=== PATIENT | female | born 1990 | race Hispanic/Latino ===

== ENCOUNTER 2019-05-02 00:08 | Emergency (ER) | payer OTHER ==
[2019-05-02 02:04] LABS: Bacteria/HPF 1+ HPF (None Seen); Bilirubin Negative (Negative); Blood, Urine Negative (Negative); Clarity Turbid (Clear); Glucose, Urine (Dipstick) Normal (Negative); Leukocyte 500 Leu/uL (Negative); Nitrite Negative (Negative); Protein, Urine (Dipstick) Negative (Neg-Trace); RBC/HPF 0-3 HPF (0-3); Urobilinogen Normal mg/dL (Less than 2); WBC/HPF 21-50 HPF (0-3)
[2019-05-02 20:08] LABS: Chlam.trachomatis by PCR,Urine Not Detected (NotDetected)
== END 2019-05-02 02:55 | disposition home or self-care (01) ==
LOC: ERS 00:08
DX: N39.0 Urinary tract infection, site not specified (principal); F41.9 Anxiety disorder, unspecified; F32.9 Major depressive disorder, single episode, unspecified; Z79.899 Other long term (current) drug therapy
CPT/HCPCS: 81003; 81015; 87086; 87480; 87491; 87510; 87591; 87660

== ENCOUNTER 2019-05-23 09:58 | Inpatient (IN) | payer OTHER ==
[2019-05-23 10:25] VITALS: BMI 26.7
[2019-05-23] MEDS ORDERED: hydrALAZINE 20 MG/ML VIAL SLOW IVP PRN (10:49)
--- NOTE | 2019-05-23 11:15 | PDOC.FPROB ---
FMR OB H&P: HPI - History of Present Illness Chief Complaint: leakage of fluid History of Present Illness: 28yo @ 19.5wk by LMP c/w 14.5wk shadia presents for leakage of fluid and oligo on US at clinic. Per pt, she first starting having vaginal discharge 2 weeks ago on 05/02/19. Was seen in ED, diagnosed with BV and given abx which she finished. Discharge at that time was thick, yellow. Since then, discharge has continued but has been clear, no large gushes of fluid. Over past 5 days has had scant vaginal bleeding but increased in amount, occasional cramping. Chills. No fever. No CP, SOB, vision changes, LE edema, recent travel or known sick contacts. No vaginal burning, itching, dysuria, or frequency. No constipation or diarrhea. Other deliveries were at 40wk x4 and most recent at 38wks. Last had placenta previa early in that resolved. No NICU stay. History of Chlamydia during 3rd but negative since. No new partners, no recent intercourse. Primary Care Physician: PNC FMR OB H&P: Current - Care : 7 Para: [id number] Gestational age: 19.5 Due date: 10/12/19 Dating Criteria: LMP c/w 14.5wk sono - OB Labs Blood type: O RH: positive Antibody Screen: negative HIV: negative RPR: negative HepBsAg: negative Rubella: immune Gonorrhea: negative Chlamydia: negative Pap Smear: NILM H&H: 13.1/38.8 Additional labs: 05/01/19 BV GBS negative last - First Trimester Ultrasound First trimester: Fundal placenta FMR OB H&P: History - Past Medical History PMH: denies. Per records, h/o intention overdose of SSRI in 2014 during . - OB History OB History: . Other deliveries were at 40wk x4 and most recent at 38wks. Last had placenta previa early in that resolved. No NICU stay. 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 No new partners, no recent intercourse. H/o BV 2 weeks ago, treated. - Surgical History Sx History: none - Social History Social History: No tob, illicits, etoh. - Family History Family History: GM with breast cancer and DMII FMR OB H&P: Medications - Current Home Medications: Medication Instructions Recorded Confirmed Type No122/Iron/Folic Acid 1 each PO DAILY #0 tablet 08/31/14 05/23/19 Rx [ Multi Tablet] Allergies/Adverse Reactions: Allergies Allergy/AdvReac Type Severity Reaction Status Date / Time Penicillins Allergy Short of Verified 05/23/19 10:19 Breath FMR OB H&P: ROS - Review of Systems General: denies: fever/chills, weight/appetite/sleep changes Eyes: denies: vision changes ENT: denies: nasal congestion, rhinorrhea Cardiovascular: denies: chest pain Respiratory: denies: cough, congestion, shortness of breath Gastrointestinal: reports: cramping. denies: abdominal pain, nausea, vomiting, diarrhea, constipation Genitourinary (Female): reports: vaginal discharge, vaginal bleeding. denies: dysuria, hematuria, contractions Musculoskeletal: denies: pain FMR OB H&P: Vital Signs - Maternal Vital signs: Vital Signs - First Documented Temp Pulse Resp BP 98.9 F 73 18 106/64 05/23/19 10:18 05/23/19 10:18 05/23/19 10:18 05/23/19 10:18 - Heart Tones Baseline: 135 (FHT) FMR OB H&P: Physical Exam - Physical Exam General: NAD, awake, alert and oriented HEENT: MMM Neck: supple Heart: RRR, normal S1/S2, no murmurs/rubs/gallops, no edema General: CTAB, no respiratory distress, good air movement, no wheezing Abdomen: soft, gravid, non-tender, bowel sound present Neurological: no focal deficit Psychiatric: intact recent and remote memory, good judgement and insight, normal mood and affect - Pelvic Exam Vulva: normal hair distribution, no masses, no lesions Deviation from normal: thick, yellow discharge Deviation from normal: 1cm cluster of red, nontender, blisters on anterior cervical lip, no poolin FMR OB H&P: A/P - Problem List (1) Second trimester Current Visit: Yes Status: Acute Code(s): Z34.92 - ENCNTR FOR SUPRVSN OF NORMAL PREG, UNSP, SECOND TRIMESTER Disposition: 28yo @ 19.5wk by LMP c/w 14.5wk sono presents for leakage of fluid and oligo on US at clinic. #Concern for PPROM - @ 19.5wk - leakage of fluid x2 weeks - scant vaginal bleeding, cramping, increased over past 5d - Speculum exam with thick yellow discharge, no pooling. Anterior cervical lesions, red, nontender, blister, approx 1cm cluster - VP3, GC/C, and Amnisure obtained - US in clinic with oligo, unable to apprec any fluid - Ordered 2nd trimester US with cervical length and SHARAD - FHT 135 - Concern for PPROM, if confirmed will admit to L&D for expectant management as fetus is below viable gestational age Dispo: Pending VP3, GC/C, Amnisure and US. Discussion: Date/Time: 05/23/19 1111 This H&P was discussed with Dr. Galdamez and Dr. Patterson who agree with the above documentation and plan.
[2019-05-23 11:41] LABS: Amnisure Internal Control QC ACCEPTABLE (ACCEPTABLE)
[2019-05-23 11:42] LABS: Amnisure Test No Membranes Rupture (No Rupture)
--- NOTE | 2019-05-23 13:12 | PDOC.BPN ---
- Brief Progress Note S: Pt doing well, no concerns or complaints. No pain, CP, SOB, n/v. O: Selected Entries 05/23/19 10:18 Temperature 98.9 F Pulse Rate 73 Blood Pressure 106/64 [Semi-Fowlers] Respiratory 18 Rate Resting comfortably. NAD. No further vaginal bleeding or LOF at this time. A/P: 28yo @ 19.5wk by LMP c/w 14.5wk sono presented for leakage of fluid and oligo on US at clinic. #Suspected PPROM - @ 19.5wk - leakage of fluid x2 weeks. Scant vaginal bleeding and cramping, increased over past 5d - Speculum exam with thick yellow discharge, no pooling. Anterior cervical lesions, red, nontender, blister, approx 1cm cluster. Closed cervix. - VP3 negative - Amnisure negative - GC/C pending - US in clinic on 05/22 with oligo, unable to apprec any fluid, sent to L&D for triage - OB US 05/22 - cervical length 3.9cm. SHARAD 1.6cm. Measuring 18.6wks, Transverse lie, anterior placenta. Official read pending for anatomy. - FHT 135 at admission - Suspected PPROM. Admit to antepartum. Daily CBC, q4h Vitals with temp, daily FHT. Monitor for onset of labor or s/s of infx. - Repeat US in 2days for further management - cont to monitor clinical status. Dispo: Admit to antepartum. Monitor for s/s of infection or onset of labor. Daily FHT and CBC. q4h vitals. Repeat US in 2 days (05/24)
--- NOTE | 2019-05-23 13:46 | ULT ---
OB ULTRASOUND: 05/23/19 COMPARISON: None. HISTORY: Concern for premature rupture of the membranes in a second trimester female. COMPARISON: None. TECHNIQUE: Multiplanar clarke scale and color Doppler images were obtained in a transabdominal ultrasound. FINDINGS: There is a single live intrauterine with heart rate of 163 beats per minute. A limited feta l survey was performed which is unremarkable. The face, extremities, and heart were not well visualiz ed. The other structures were unremarkable. Estimated weight is 274 grams. Average age of the fetus based off today's examination is 18 wee ks, 6 days. The following measurements were taken and dates based off these measurements are as follo ws: BPD 4.05 cm 18 weeks, 0 days HC 15.85 cm 18 weeks, 5 days AC 13.35 cm 18 weeks, 6 days FL 3.08 cm 19 weeks, 4 days The placenta is anterior/fundal in location without evidence of placenta previa. SHARAD is 1.6 cm, which is low. The cervix is normal in length. IMPRESSION: Oligohydramnios. POS: [facility]
[2019-05-23 17:25] LABS: #Eosinphils 0.2 thou/uL (0.0-0.7); #Lymphocytes 2.3 thou/uL (1.20-3.40); #Monocytes 1.3 thou/uL (0.11-0.59); #Neutrophils 11.3 thou/uL (1.40-6.50); %Basophils 0.2 % (0.0-1.0); %Lymphocytes 15.5 % (21.0-51.0); %Monocytes 8.4 % (0.0-10.0); %Neutrophils 74.9 % (42.0-75.0); Hemoglobin 12.1 g/dL (12.0-16.0); Mean Corpuscular Hemoglobin 29.8 pg (27.0-31.0); Mean Corpuscular Volume 87.7 fL (78.0-98.0); Mean Platelet Volume 8.2 fL (7.4-10.4); Platelet Count 259 thou/uL (130-400); RBC Distribution Width 12.1 % (11.5-14.5); Red Blood Cell (RBC) Count 4.06 mill/uL (4.20-5.40)
[2019-05-23 18:08] LABS: Syphilis Antibody Nonreactive (Nonreactive); Syphilis Antibody Index 0.02 S/CO (<1.00 Non-Reactive)
[2019-05-23 18:09] LABS: HBSAg Index 0.24 S/CO (0-0.99); Hep B Surf Ag Non-Reactive S/CO (NonReactive)
[2019-05-24 05:50] LABS: #Eosinphils 0.5 thou/uL (0.0-0.7); #Lymphocytes 2.6 thou/uL (1.20-3.40); #Monocytes 1.1 thou/uL (0.11-0.59); #Neutrophils 12.4 thou/uL (1.40-6.50); %Basophils 0.3 % (0.0-1.0); %Eosinophils 2.9 % (0.0-10.0); %Lymphocytes 15.8 % (21.0-51.0); %Monocytes 6.6 % (0.0-10.0); %Neutrophils 74.4 % (42.0-75.0); Hemoglobin 12.2 g/dL (12.0-16.0); Mean Corpuscular HGB CONC 34.1 g/dL (32.0-36.0); Mean Corpuscular Hemoglobin 30.3 pg (27.0-31.0); Mean Corpuscular Volume 88.8 fL (78.0-98.0); Mean Platelet Volume 8.7 fL (7.4-10.4); Platelet Count 243 thou/uL (130-400); RBC Distribution Width 12.2 % (11.5-14.5); Red Blood Cell (RBC) Count 4.05 mill/uL (4.20-5.40); White Blood Cell (WBC) Count 16.7 thou/uL (4.8-10.8)
--- NOTE | 2019-05-24 06:14 | HP ---
ADDENDUM: TIME OF SERVICE: Approximately 1300 hours. Please see resident H and P. Ms. Rodríguez was admitted with suspected previable rupture of membranes at 19 weeks and 5 days. AmniSure and speculum exam were equivocal; however, the patient's history and low SHARAD are very suggestive of rupture of membranes. The patient's white count is within normal limits, and she remains afebrile. The fetus is noted to be transverse with good FHTs. I discussed with the patient our options. As there was no evidence of septic AB, termination of the is not an option at this time secondary to [employer] ethical and lutheran directives. I do not think at 19 weeks that antibiotics are indicated on a prophylactic basis as they may conceal the development of septic AB. Plan would be to admit the patient to the hospital bed rest with modified activity, regular diet, serial temperatures, serial CBCs, and repeat ultrasound in 2 days. Reassess fluid level at that point in time. If the patient makes it to 21 to 22 weeks' gestation, consider antibiotic prophylaxis for prolonged rupture of membranes, and would consider corticosteroids and transfer to a tertiary care center for higher level care at 23 weeks' gestation. The patient understands risks and benefits of the procedure, risk and benefits of continuing the , and the risk of delayed diagnosis of sepsis with home discharge at this time. She consents to hospitalization. Job ID: [id number]
--- NOTE | 2019-05-24 06:46 | PDOC.OBAPN ---
FMR OB AP PN: Sub - Interval History Hospital Day: 1 Chief Complaint: Leakage of fluid Interval History: Occasional cramping, small vaginal bleeding, no vaginal discharge R OB AP PN: Obj - Maternal Vital signs: Selected Entries 05/23/19 05/23/19 16:25 16:55 Temperature 99.2 F Pulse Rate 85 Blood Pressure 119/57 L [Semi-Fowlers] Respiratory 18 Rate Oxygen Delivery Room Air Method [facility] OB AP PN: Exam - Physical Exam General: NAD, awake, alert and oriented HEENT: MMM Neck: supple Heart: RRR, normal S1/S2, no murmurs/rubs/gallops, no edema General: CTAB, no respiratory distress, good air movement, no wheezing Abdomen: soft, gravid, bowel sound present, other (mildly TTP over fundus of uterus) Deviation from normal: no rebound or guarding Neurological: no focal deficit Skin: no rash Psychiatric: normal mood and affect [facility] OB AP PN: Data - Labs Lab results: Laboratory Results - last 24 hr 05/23/19 05/23/19 05/23/19 11:00 17:16 17:16 WBC RBC Hgb Hct MCV MCH MCHC RDW Plt Count MPV Neutrophils % Lymphocytes % Monocytes % Eosinophils % Basophils % Neutrophils # Lymphocytes # Monocytes # Eosinophils # Basophils # Amnio Swab Test No Membranes Rupture Syphilis IgG/IgM Ab Nonreactive Hep Bs Antigen Non-Reactive Blood Type Antibody Screen 05/23/19 05/23/19 05/24/19 17:16 17:16 05:32 WBC 15.0 H 16.7 H RBC 4.06 L 4.05 L Hgb 12.1 12.2 Hct 35.7 L 35.9 L MCV 87.7 88.8 MCH 29.8 30.3 MCHC 34.0 34.1 RDW 12.1 12.2 Plt Count 259 243 MPV 8.2 8.7 Neutrophils % 74.9 74.4 Lymphocytes % 15.5 L 15.8 L Monocytes % 8.4 6.6 Eosinophils % 1.0 2.9 Basophils % 0.2 0.3 Neutrophils # 11.3 H 12.4 H Lymphocytes # 2.3 2.6 Monocytes # 1.3 H 1.1 H Eosinophils # 0.2 0.5 Basophils # 0.0 0.0 Amnio Swab Test Syphilis IgG/IgM Ab Hep Bs Antigen Blood Type O POSITIVE Antibody Screen NEGATIVE FMR OB AP PN: A/P - Problem List (1) Second trimester Current Visit: Yes Status: Acute Code(s): Z34.92 - ENCNTR FOR SUPRVSN OF NORMAL PREG, UNSP, SECOND TRIMESTER Disposition: 28yo @ 19.6wk by LMP c/w 14.5wk sono presented for leakage of fluid and oligo on US at clinic admitted for suspected PPROM #Suspected PPROM - @ 19.6wk - leakage of fluid x2 weeks. Scant vaginal bleeding and cramping, increased over past 5d prior to admission - Speculum exam at admission with thick yellow discharge, no pooling. Anterior cervical lesions, red, nontender, blister, approx 1cm cluster. Closed cervix. - VP3 negative - Amnisure negative - GC/C pending - US in clinic on 05/22 with oligo, unable to apprec any fluid, sent to L&D for triage - OB US 05/22 - cervical length 3.9cm. SHARAD 1.6cm. Measuring 18.6wks, Transverse lie, anterior placenta. Grossly normal anatomy - FHT 135 at admission - Suspected PPROM. Admitted to antepartum. Daily CBC, q4h Vitals with temp, daily FHT. Monitor for onset of labor or s/s of infx. - Repeat US on 05/24 for further management - VSS, afebrile. WBC 15 -> 16.7 - mildly tender uterus on exam, will monitoring closely for s/s of infection or onset of spontaneous - plan discussed with patient at beside who voiced understanding and agreement Dispo: Admitted to antepartum. Monitor for s/s of infection or onset of labor. Daily FHT and CBC. q4h vitals with temp. Repeat TVUS on 05/24. Discussion: Date/Time: 05/24/19 0646 This H&P was discussed with Dr. Patterson who agrees with the above documentation and plan.
[2019-05-24] MEDS: Prenatal Vitamin 1 TAB PO SCH (10:55)
[2019-05-24 12:19] LABS: Chlamydia by PCR Not Detected (NotDetected); GC by PCR Not Detected (NotDetected)
--- NOTE | 2019-05-25 07:14 | PDOC.OBAPN ---
FMR OB AP PN: Sub - Interval History Hospital Day: 2 Chief Complaint: PPROM Interval History: Doing well. Increased bleeding and cramping. No fever/chills, n/v. FMR OB AP PN: Obj - Maternal Vital signs: BP 108/57 -> 133/76 Selected Entries 05/24/19 05/24/19 08:01 12:50 Temperature 98.6 F 98.7 F Pulse Rate 81 Blood Pressure 107/61 [Semi-Fowlers] Respiratory 18 Rate Oxygen Delivery Room Air Method - Heart Tones Baseline: 160 (FHT) FMR OB AP PN: Exam - Physical Exam General: NAD, awake, alert and oriented HEENT: MMM Neck: supple Heart: RRR, normal S1/S2, no murmurs/rubs/gallops, no edema General: CTAB, no respiratory distress, good air movement, no rales/rhonchi, no wheezing Abdomen: soft, gravid, bowel sound present, other Deviation from normal: Mildly TTP over LLQ and midline, no rebound or guarding Neurological: no focal deficit Psychiatric: good judgement and insight, normal mood and affect FMR OB AP PN: Data - Labs Lab results: Laboratory Results - last 24 hr 05/23/19 11:00 Chlamydia DNA (PCR) Not Detected Chlamydia/GC Spec Info N gonorrhoeae DNA (PCR) Not Detected FMR OB AP PN: A/P - Problem List (1) Second trimester Current Visit: Yes Status: Acute Code(s): Z34.92 - ENCNTR FOR SUPRVSN OF NORMAL PREG, UNSP, SECOND TRIMESTER Disposition: 28yo @ 20.0wk by LMP c/w 14.5wk sono presented for leakage of fluid and oligo on US at clinic admitted for suspected PPROM #Suspected PPROM - @ 20.0wk - leakage of fluid x2 weeks. Scant vaginal bleeding and cramping, increased over past 5d prior to admission - Speculum exam at admission with thick yellow discharge, no pooling. Anterior cervical lesions, red, nontender, blister, approx 1cm cluster. Closed cervix. - VP3 and GC/C negative - Amnisure negative - US in clinic on 05/22 with oligo, unable to apprec any fluid, sent to L&D for triage - OB US 05/22 - cervical length 3.9cm. SHARAD 1.6cm. Measuring 18.6wks, Transverse lie, anterior placenta. Grossly normal anatomy - FHT 135 at admission, 160 this AM - Suspected PPROM. Admitted to antepartum. Daily CBC, q4h Vitals with temp, daily FHT. Monitor for onset of labor or s/s of infx. - Repeat US today to assess SHARAD - VSS, afebrile. WBC 15 -> 16.7, AM labs pending - mildly tender uterus on exam, stable from previous exam - Slight increase in cramping and bleeding per pt, will monitoring closely for s /s of infection or onset of spontaneous - plan discussed with patient at beside who voiced understanding and agreement. Pending labwork and US, discharge with return precautions vs continued inpt observation Dispo: Admitted to antepartum. Monitor for s/s of infection or onset of labor. Daily FHT and CBC. q4h vitals with temp. Repeat TVUS today. Discussion: Date/Time: 05/25/19711 This H&P was discussed with Dr. Hart agrees with the above documentation and plan.
[2019-05-25 07:26] LABS: #Eosinphils 0.4 thou/uL (0.0-0.7); #Lymphocytes 2.8 thou/uL (1.20-3.40); #Monocytes 1.1 thou/uL (0.11-0.59); #Neutrophils 12.7 thou/uL (1.40-6.50); %Basophils 0.2 % (0.0-1.0); %Eosinophils 2.4 % (0.0-10.0); %Lymphocytes 16.1 % (21.0-51.0); %Monocytes 6.6 % (0.0-10.0); %Neutrophils 74.7 % (42.0-75.0); Hemoglobin 12.3 g/dL (12.0-16.0); Mean Corpuscular HGB CONC 33.6 g/dL (32.0-36.0); Mean Corpuscular Volume 89.2 fL (78.0-98.0); Mean Platelet Volume 8.3 fL (7.4-10.4); Platelet Count 260 thou/uL (130-400); RBC Distribution Width 12.2 % (11.5-14.5)
--- NOTE | 2019-05-25 11:49 | ULT ---
OB ULTRASOUND: INDICATIONS: Oligohydramnios. FINDINGS: There is a viable intrauterine single gestation. This is a limited exam and measurements were n ot obtained. There is severe oligohydramnios. The SHARAD is recorded at 1.8 cm. heart rate is 158 beats per minute. Baseline position: Breech. Placenta: Anterior. IMPRESSION: Severe oligohydramnios. POS: [facility]
[2019-05-25] MEDS: Acetaminophen 500 MG TAB PO PRN (20:40)
[2019-05-25] MEDS: Prenatal Vitamin 1 TAB PO SCH (22:53)
[2019-05-26 05:47] LABS: #Eosinphils 0.2 thou/uL (0.0-0.7); #Lymphocytes 2.7 thou/uL (1.20-3.40); #Neutrophils 11.3 thou/uL (1.40-6.50); %Basophils 0.3 % (0.0-1.0); %Eosinophils 1.6 % (0.0-10.0); %Lymphocytes 17.7 % (21.0-51.0); %Monocytes 6.4 % (0.0-10.0); %Neutrophils 73.9 % (42.0-75.0); Hemoglobin 11.5 g/dL (12.0-16.0); Mean Corpuscular HGB CONC 34.1 g/dL (32.0-36.0); Mean Corpuscular Hemoglobin 30.2 pg (27.0-31.0); Mean Corpuscular Volume 88.5 fL (78.0-98.0); Mean Platelet Volume 8.5 fL (7.4-10.4); Platelet Count 244 thou/uL (130-400); RBC Distribution Width 12.3 % (11.5-14.5); Red Blood Cell (RBC) Count 3.83 mill/uL (4.20-5.40); White Blood Cell (WBC) Count 15.3 thou/uL (4.8-10.8)
[2019-05-26] MEDS ORDERED: Simethicone Chewable 80 MG TAB PO PRN (05:49)
[2019-05-26] MEDS ORDERED: Docusate 100 MG CAP PO PRN (05:51)
[2019-05-26] MEDS: Acetaminophen 500 MG TAB PO PRN (06:01)
[2019-05-26 06:11] VITALS: TEMP 98.4
--- NOTE | 2019-05-26 07:06 | PDOC.OBAPN ---
FMR OB AP PN: Sub - Interval History Chief Complaint: PPROM Interval History: Doing well, mild nausea, no vomit. Cramping less. Bleeding less FMR OB AP PN: Obj - Maternal Vital signs: Selected Entries 05/25/19 05/26/19 05/26/19 20:00 00:10 05:30 Temperature 99.1 F 98.5 F 98.4 F Pulse Rate 80 Blood Pressure 108/61 [Semi-Fowlers] Respiratory 17 Rate - Heart Tones Baseline: 150 (FHT) R OB AP PN: Exam - Physical Exam General: NAD, awake, alert and oriented HEENT: MMM Neck: supple Heart: RRR, normal S1/S2, no murmurs/rubs/gallops, pulses present, no edema General: CTAB, no respiratory distress, good air movement, no rales/rhonchi, no wheezing Abdomen: soft, gravid, bowel sound present Deviation from normal: Mildly TTP, decreased from previous exams Neurological: no focal deficit R OB AP PN: Data - Labs Lab results: Laboratory Results - last 24 hr 05/25/19 05/26/19 07:20 05:37 WBC 17.0 H 15.3 H RBC 4.10 L 3.83 L Hgb 12.3 11.5 L Hct 36.5 33.9 L MCV 89.2 88.5 MCH 30.0 30.2 MCHC 33.6 34.1 RDW 12.2 12.3 Plt Count 260 244 MPV 8.3 8.5 Neutrophils % 74.7 73.9 Lymphocytes % 16.1 L 17.7 L Monocytes % 6.6 6.4 Eosinophils % 2.4 1.6 Basophils % 0.2 0.3 Neutrophils # 12.7 H 11.3 H Lymphocytes # 2.8 2.7 Monocytes # 1.1 H 1.0 H Eosinophils # 0.4 0.2 Basophils # 0.0 0.0 FMR OB AP PN: A/P - Problem List (1) Second trimester Current Visit: Yes Status: Acute Code(s): Z34.92 - ENCNTR FOR SUPRVSN OF NORMAL PREG, UNSP, SECOND TRIMESTER Disposition: 28yo @ 20.1wk by LMP c/w 14.5wk sono presented for leakage of fluid and oligo on US at clinic admitted for suspected PPROM #Suspected PPROM - @ 20.1wk - leakage of fluid x2 weeks. Scant vaginal bleeding and cramping, increased over past 5d prior to admission - Speculum exam at admission with thick yellow discharge, no pooling. Anterior cervical lesions, red, nontender, blister, approx 1cm cluster. Closed cervix. - VP3 and GC/C negative - Amnisure negative - US in clinic on 05/22 with oligo, unable to apprec any fluid, sent to L&D for triage - OB US 05/22 - cervical length 3.9cm. SHARAD 1.6cm. Measuring 18.6wks, Transverse lie, anterior placenta. Grossly normal anatomy - Repeat OB US 05/24 with SHARAD 1.8cm, Breech presentation, anterior placenta - FHT 150 this AM - Suspected PPROM. Admitted to antepartum. Daily CBC, q4h Vitals with temp, daily FHT. Monitor for onset of labor or s/s of infx. - VSS, afebrile. WBC 15 -> 16.7 -> 17.0 -> 15.3 - mildly tender uterus on exam, improved from previous exam. Cramping decreased per pt. Vaginal bleeding mild and decreased per pt. - plan discussed with patient at beside who voiced understanding and agreement. Spoke at length on return precautions including but not limited to fever, increased vaginal bleeding, cramping, body aches that would warrant return to L& D. If pt should also progress to 23wks will need to present for admission at that time. Pt also needs close f/u in clinic this week. Dispo: Admitted to antepartum. Monitored for s/s of infection or onset of labor. Daily FHT and CBC. q4h vitals with temp. Repeat TVUS stable. Stable for discharge today. Discussion: Date/Time: 05/26/19 0633 This H&P was discussed with Dr. Rios who agrees with the above documentation and plan.
[2019-05-26 09:29] VITALS: BP 106/59
[2019-05-26] MEDS: Prenatal Vitamin 1 TAB PO SCH (10:19)
--- NOTE | 2019-05-27 11:35 | DIS ---
DATE OF ADMISSION: 05/23/2019 DATE OF DISCHARGE: 05/26/2019 RESIDENT: Law Avila MD. ADMITTING ATTENDING: Dr. Patterson. DISCHARGE ATTENDING: Dr. Rios. CONSULTS: None. PROCEDURES: 1. OB ultrasound on 05/23/2019, demonstrating SHARAD 1.6, normal cervical length, anterior placenta. 2. OB ultrasound on 05/25/2019, demonstrating SHARAD 1.8 cm. heart rate 158 beats per minute. Breech presentation. Anterior placenta. PRIMARY DIAGNOSIS: Suspected PPROM. SECONDARY DIAGNOSES: Single intrauterine . DISCHARGE MEDICATIONS: vitamin 1 tablet p.o. daily. HOSPITAL COURSE: At the time of discharge, the patient was a G7, P5-0-1-5 at 20.1 weeks by LMP consistent with a 14.5-week sono, who initially presented for leakage of fluid and oligo on ultrasound at clinic. The patient stated that she had had leakage of fluid for approximately 2 weeks. Scant vaginal bleeding and cramping, but these increased over the past 5 days. Speculum exam at admission demonstrated thick yellow discharge. No pooling of fluid. An anterior cervical lesion was red, nontender, blister-like approximately 1 cm cluster, closed cervix. The VP3 and gonorrhea, chlamydia were both obtained and negative. AmniSure was obtained and negative. heart tones were normal. An ultrasound at clinic on 05/23/2019, demonstrated oligohydramnios, unable to appreciate any fluid, and thus she was sent to L and D for triage. Repeat ultrasound at triage demonstrated a cervical length of 3.9 cm and SHARAD of 1.67 cm, measuring 18.6 weeks with transverse lie anterior placenta. Based on the history obtained and data, it appeared to be the patient was PPROM, and was admitted for observation. We decided the patient would have daily CBCs, monitoring of vitals q.4 hours with temperature and monitor for any signs of increased cramping or vaginal bleeding or any other signs of infection. This plan was discussed with the patient, and she voiced agreement and understanding of the admission plan. Throughout her hospitalization, the patient's vital signs remained stable. She remained afebrile. White count was obtained daily, and this trended up initially from 15 to 16.7 to 17.0, and at the day of discharge, was 15.3. Initially, the patient had mild intermittent cramping and scant vaginal bleeding. This increased on day one of hospitalization, but on the day of discharge, the patient's tenderness had decreased and vaginal bleeding had decreased as well. The patient was ambulating well. She was tolerating p.o. without any nausea, vomiting, having no fevers or chills. Vital signs were otherwise stable. Based on presentation of the patient being stable throughout her hospitalization, no signs of infection, and no progression of spontaneous , it was determined the patient would be safe for discharge with very close followup. Discharge plan was discussed with patient at bedside. The patient was told that should she start to experience any fevers, chills, increased vaginal bleeding, cramping, body aches, signs of illness, she should re-present to L and D for further evaluation. It was also noted that the patient is not a very high likelihood of progressing to spontaneous . We also discussed the patient should follow up with clinic this week as well as weekly until 23 weeks or any change in her status. Should the patient make it to 23 weeks, the patient will need to be readmitted at that time for steroids, antibiotics and further management. This plan was discussed with the patient who voiced agreement and understanding of the plan with appropriate followup and return precautions. All questions were answered appropriately. The patient was then safe for discharge and discharged home to self-care. DISPOSITION: Stable. DISCHARGE INSTRUCTIONS: 1. Location: Home. 2. Diet: As tolerated. 3. Activity: As tolerated. 4. Followup: The patient is to follow up with clinic for OB care this week and return to L and D should she experience any alarm symptoms. Job ID: [id number]
== END 2019-05-26 11:05 | disposition home or self-care (01) | DRG 832 ==
LOC: L&D/OP 09:58 → L&D 17:42 → 3SW 05-25 18:02
PROVIDERS: ADMIT Family Medicine; ATTEND Family Medicine
DX: O42.912 Preterm premature rupture of membranes, unspecified as to length of time between rupture and onset of labor, second trimester (principal); O41.02X0 Oligohydramnios, second trimester, not applicable or unspecified; Z3A.19 19 weeks gestation of pregnancy; Z88.0 Allergy status to penicillin
CPT/HCPCS: 36415; 76805; 76815; 84112; 85025; 86780; 86850; 86900; 86901; 87340; 87480; 87491; 87510; 87591; 87660; 99285

== ENCOUNTER 2019-05-29 11:56 | Day surgery (SDC) | payer OTHER ==
[2019-05-29 12:28] VITALS: BMI 28.5
[2019-05-29 12:29] VITALS: BP 111/61; TEMP 98.4
--- NOTE | 2019-05-29 13:47 | PDOC.FPROB ---
FMR OB H&P: HPI - History of Present Illness Chief Complaint: Bleeding Indentification: 28yo @ 20.4wk by LMP c/w 14.5wk sono History of Present Illness: Pt comes in with increasing vaginal bleeding. Pt was recently in the hospital from 05/22-05/25 and was noted to have severe oligo. Pt had some mild bleeding then. Serial cbc was checked and hgb remained stable. Last US on 05/24 showed severe oligo with SHARAD of 1.8, baby in breech position w/ FHR of 158 and placenta in anterior position. Pt reports having some bleeding every day since discharge but last two days has passed some large clots. Reports mainly in the morning. Reports today started having cramping and nausea pain. States feels like ctx that come and go. Denies any vaginal discharge or odor. Denies any burning with peeing or increased frequency. Denies any fever or chills. Reports checking fever daily. Denies any vomiting. Denies any recent sex or anything in the vagina. Denies any chest pain, SOB, headaches, vision changes. Primary Care Physician: PNC FMR OB H&P: Current - Care : 7 Para: 5 Gestational age: 20.4 Due date: 10/12/2019 Dating Criteria: 14.5 wk sono - OB Labs Additional labs: Blood type: O RH: positive Antibody Screen: negative HIV: negative RPR: negative HepBsAg: negative Rubella: immune Gonorrhea: negative Chlamydia: negative Pap Smear: NILM H&H: 13.1/38.8 Additional labs: 05/01/19 BV GBS negative last - First Trimester Ultrasound First trimester: fundal placenta - Additional Ultrasound Additional: Discussed in HPI above FMR OB H&P: History - Past Medical History PMH: PMH: denies. Per records, h/o intention overdose of SSRI in 2014 during . OB History: . Other deliveries were at 40wk x4 and most recent at 38wks. Last had placenta previa early in that resolved. No NICU stay. 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 No new partners, no recent intercourse. H/o BV 3 weeks ago, treated. Sx History: none Social History: No tob, illicits, etoh. Family History: GM with breast cancer and DMII FMR OB H&P: Medications - Current Home Medications: Medication Instructions Recorded Confirmed Type No122/Iron/Folic Acid 1 each PO DAILY #0 tablet 08/31/14 05/29/19 Rx [ Multi Tablet] Clotrimazole [Clotrimazole 1% 1 appful VAG HS 7 Days #1 tube 05/29/19 Rx Vaginal Cream] Allergies/Adverse Reactions: Allergies Allergy/AdvReac Type Severity Reaction Status Date / Time Penicillins Allergy Short of Verified 05/29/19 12:26 Breath FMR OB H&P: ROS - Review of Systems General: denies: fever/chills, weight/appetite/sleep changes Eyes: denies: vision changes ENT: denies: nasal congestion Respiratory: denies: cough, congestion, shortness of breath Gastrointestinal: reports: cramping, nausea. denies: abdominal pain, vomiting, diarrhea Genitourinary (Female): reports: dysuria, vaginal bleeding, contractions. denies: incontinence, hematuria, vaginal discharge Musculoskeletal: denies: pain, stiffness Neurologic: denies: numbness, weakness Integumentary: denies: itching, rash Psychological: reports: anxiety (reports some increased anxiety due to the situation). denies: depression FMR OB H&P: Vital Signs - Maternal Vital signs: Vital Signs - First Documented Temp Pulse Resp BP 98.4 F 72 18 111/61 05/29/19 12:22 05/29/19 12:22 05/29/19 12:22 05/29/19 12:22 - Heart Tones Baseline: 160 [place] contractions every: none noted FMR OB H&P: Physical Exam - Physical Exam General: NAD, awake, alert and oriented HEENT: normocephalic and atraumatic, grossly normal vision, grossly normal hearing Neck: supple, FROM Heart: RRR, normal S1/S2, no murmurs/rubs/gallops, pulses present General: CTAB, no respiratory distress, good air movement, no rales/rhonchi, no wheezing Abdomen: soft, non-tender, bowel sound present, no masses, no hernias Musculoskeletal: normal gait and station, pulses present, FROM in all four extremities Neurological: sensation to pain,touch and proprioception grossly normal Skin: no rash, capillary refill <2 seconds Psychiatric: intact recent and remote memory, normal mood and affect - Pelvic Exam Cervix: no blood Deviation from normal: There is a red friable lesion protruding from ednocervix into 12:00 positio SVE: cervix was closed on exam. No pooling noted FMR OB H&P: A/P - Problem List (1) Status: Acute Qualifiers: Weeks of gestation: 39 weeks Qualified Code(s): Z3A.39 - 39 weeks gestation of Comment: Delivered viable male - Comfortable, eating, walking, passing gas - Pain is well controlled - Mother denies being depression - Power Transmission Engineer has seen and feels mother is joyful and happy. (2) Oligohydramnios Status: Acute Code(s): O41.00X0 - OLIGOHYDRAMNIOS, UNSP TRIMESTER, NOT APPLICABLE OR UNSP (3) Vaginal bleeding Status: Acute Code(s): N93.9 - ABNORMAL UTERINE AND VAGINAL BLEEDING, UNSPECIFIED Disposition: At this time we will repeat U/S to assess fluid, position of baby and see if there is any sign of bleeding abnormalities. Will repeat CBC. Pt denies any signs or sx's of infection. VP3 obtained due to friability of cervix. Some yellow discharge noted. will tx with clotrimazole cream. GBS swab obtained. G/Ch was negative on last visit and did not repeat at this time. Amnisure repeated as was negative last visit. Discussion: Date/Time: 05/29/19 8083 This H&P was discussed with [] and [] who agree with the above documentation and plan. Addendum - Attending - Attending Attestation Date/Time: 05/29/19 283 I personally evaluated the patient and discussed the management with Dr. Mota. I agree with the History, Examination, Assessment and Plan documented. Previable with severe oligohydramnios. +FHTs, no e/o active bleeding, or infection at this time. D/c home with strict precautions.
[2019-05-29 14:11] LABS: #Eosinphils 0.3 thou/uL (0.0-0.7); #Lymphocytes 2.4 thou/uL (1.20-3.40); #Monocytes 0.7 thou/uL (0.11-0.59); #Neutrophils 10.7 thou/uL (1.40-6.50); %Basophils 0.3 % (0.0-1.0); %Eosinophils 1.9 % (0.0-10.0); %Lymphocytes 16.7 % (21.0-51.0); %Monocytes 4.9 % (0.0-10.0); %Neutrophils 76.2 % (42.0-75.0); Hemoglobin 12.1 g/dL (12.0-16.0); Mean Corpuscular HGB CONC 34.6 g/dL (32.0-36.0); Mean Corpuscular Hemoglobin 30.3 pg (27.0-31.0); Mean Corpuscular Volume 87.8 fL (78.0-98.0); Mean Platelet Volume 8.5 fL (7.4-10.4); Platelet Count 253 thou/uL (130-400); RBC Distribution Width 12.2 % (11.5-14.5); Red Blood Cell (RBC) Count 3.98 mill/uL (4.20-5.40); White Blood Cell (WBC) Count 14.1 thou/uL (4.8-10.8)
--- NOTE | 2019-05-29 14:17 | ULT ---
Obstetric sonogram Limited HISTORY: Bleeding. Oligohydramnios. COMPARISON: 05/25/2019. FINDINGS: Single intrauterine gestation in breech presentation. Heart motion at 150 bpm. Cervix is closed and 3.6 cm. Very little amniotic fluid. SHARAD measured at 0.8 cm. IMPRESSION : Severe oligohydramnios. No evidence of placental complication.
[2019-05-29 14:41] LABS: Amnisure Test No Membranes Rupture (No Rupture)
[2019-05-29 14:42] LABS: Amnisure Internal Control QC ACCEPTABLE (ACCEPTABLE)
--- NOTE | 2019-05-29 15:36 | PDOC.EVN ---
Event Note - Event Note Event Note: CBC showed WBC of 14.1 and hgb stable at 12.1. Pt vital signs stable. No sign of infection. Amnisure negative. US showed worsening oligo with fluid level of .8. Cervix lenght 3.4cm. FHR 153. Viable still noted. At this time no active bleeding was noted. Discussed likely area of bleeding was from friable cervical lesion. Discussed return precautions with patient. Advised to f/u for inpatient visit later this week at [facility]. Pt will need f/u FHT. Recommend waiting 1-2 weeks for anatomy scan to get better assessment of how oligo is affecting organ development. Will call pt on VP3 results and treat any underlying infection as needed.
== END 2019-05-29 14:38 | disposition home or self-care (01) ==
LOC: L&D/OP 11:56
PROVIDERS: ATTEND Obstetrics & Gynecology
DX: O46.92 Antepartum hemorrhage, unspecified, second trimester (principal); O41.02X0 Oligohydramnios, second trimester, not applicable or unspecified; Z3A.20 20 weeks gestation of pregnancy; Z88.0 Allergy status to penicillin
CPT/HCPCS: 36415; 76815; 84112; 85025; 87081; 87480; 87510; 87660

== ENCOUNTER 2019-06-07 11:41 | Day surgery (SDC) | payer OTHER ==
[2019-06-07 12:00] VITALS: BP 111/56; TEMP 98.9
[2019-06-07 12:01] VITALS: BMI 28.5
[2019-06-07] MEDS ORDERED: hydrALAZINE 20 MG/ML VIAL SLOW IVP PRN (13:48)
--- NOTE | 2019-06-07 14:00 | PDOC.FPROB ---
FMR OB H&P: HPI - History of Present Illness Chief Complaint: CTX, Vaginal Bleeding, Chills Indentification: @ 21.6W by LMP, c/w 14.1W US History of Present Illness: Patient is a 28 y/o female who presents to L&D following evaluation by her PCP for CTX, vaginal bleeding, and subjective chills. Patient states that she began having severe bleeding yesterday that was bright red blood and soaked through multiple pads. This was accompanied by severe ABD pain and cramping, which the patient felt was consistent with CTX from her previous pregnancies. Patient states that she took 1 dose of unknown analgesic, but this did not resolve her pain. Per the patient, the vaginal bleeding, CTX-like pain, and chills have all lessened over the past 24H. Patient's has been complicated by 3 AB attempts with Cytotec, intermittent care and suspected PPROM ~4W prior. The patient had a similar episode of CTX-like pain 1W prior for which she presented to [facility] but she is unsure of what her diagnosis was following evaluation. She was DC'd after 24H of monitoring and IV ABx witha 5D course of Keflex, and was told to monitor for signs of worsening infection and/or sepsis. Patient denies any fevers, SAUCEDO, visual disturbances, cough, nasal congestion, rhinorrhea, CP, SOB, N/V/D, dysuria and known passage of products of conception. Primary Care Physician: TY Carsno FMR OB H&P: Current - Care : 7 Para: [id number] Gestational age: 21.6W Due date: 10/12/19 Dating Criteria: LMP, c/w 14.1W US Course/Complications: See HPI - OB Labs Blood type: O RH: positive Antibody Screen: negative HIV: negative RPR: negative HepBsAg: negative Rubella: immune Quad screen: unknown Urine drug screen: not done Gonorrhea: unknown Chlamydia: unknown Pap Smear: NILM GBS: unknown FMR OB H&P: History - Past Medical History PMH: Hx of SI/Attempt (2014) - OB History OB History: All other viable pregnancies were delivered between 38W-40W EGA, no NICU stay documented. 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 - Surgical History Sx History: None. - Social History Social History: Patient denies Tobacco, EtoH and Drug Abuse. - Family History Family History: Grandmother (Breast Cancer, DM2) FMR OB H&P: Medications - Current Home Medications: Medication Instructions Recorded Confirmed Type No122/Iron/Folic Acid 1 each PO DAILY #0 tablet 08/31/14 06/07/19 Rx [ Multi Tablet] Acetaminophen [Tylenol] 650 mg PO PRN PRN 06/07/19 06/07/19 History Cephalexin 500 mg PO Q6HR 06/07/19 06/07/19 History Allergies/Adverse Reactions: Allergies Allergy/AdvReac Type Severity Reaction Status Date / Time Penicillins Allergy Short of Verified 05/29/19 12:26 Breath FMR OB H&P: ROS - Review of Systems General: reports: fever/chills Eyes: denies: vision changes ENT: denies: nasal congestion, rhinorrhea Cardiovascular: denies: chest pain, edema Respiratory: denies: cough, congestion, shortness of breath Gastrointestinal: reports: abdominal pain, cramping. denies: nausea, vomiting Genitourinary (Female): reports: vaginal bleeding, contractions. denies: dysuria, vaginal discharge Psychological: reports: other (See HPI) FMR OB H&P: Vital Signs - Maternal Vital signs: Vital Signs - First Documented Temp Pulse Resp BP Pulse Ox 98.9 F 75 18 111/56 L 100 06/07/19 11:59 06/07/19 11:59 06/07/19 11:59 06/07/19 11:59 06/07/19 11:59 - Heart Tones Baseline: 130 Variability: minimal Acceleration: absent Deceleration: late [place] contractions every: Sporadic FMR OB H&P: Physical Exam - Physical Exam General: NAD, awake, alert and oriented HEENT: normocephalic and atraumatic, EOMI, MMM, conjunctiva clear, no scleral icterus, grossly normal vision, grossly normal hearing, normal nasal mucosa, oropharynx clear Neck: supple, FROM Breast: symmetric Abdomen: soft, no masses, no hernias Musculoskeletal: pulses present, FROM in all four extremities, no misalignment/ asymmetry, no atrophy Neurological: sensation to pain,touch and proprioception grossly normal Skin: no rash, no jaundice Lymphatic: no unusual bruising or bleeding, no purpura, no petechia Psychiatric: intact recent and remote memory, normal mood and affect - Pelvic Exam Estimated Weight: other (Per chart review, most recent EFW calculated to 396 g) FMR OB H&P: A/P - Problem List (1) Rupture, membranes, premature Status: Acute Code(s): O42.90 - STEPHEN ROM, 7TH0 BETW RUPT & ONST LABR, UNSP WEEKS OF GEST Qualifiers: PROM gestational age: -second trimester (2) Oligohydramnios Status: Acute Code(s): O41.00X0 - OLIGOHYDRAMNIOS, UNSP TRIMESTER, NOT APPLICABLE OR UNSP Qualifiers: Fetus number: single or unspecified fetus (3) Status: Acute Qualifiers: Weeks of gestation: 21 weeks Qualified Code(s): Z3A.21 - 21 weeks gestation of (4) Vaginal bleeding Status: Acute Code(s): N93.9 - ABNORMAL UTERINE AND VAGINAL BLEEDING, UNSPECIFIED Disposition: Patient is a 28 y/o female at 21.6W EGA by LMP, c/w 14.1W US, who presents to L&D for evaluation of vaginal bleeding, CTX-like pain, and subjective chills. 1. PPROM, suspected -Unclear on timeline of suspected PPROM with non-viable fetus - potentially as early as 05/16 -Will not perform Amniosure at this time due to reported vaginal bleeding and likely blood in vaginal vault -Will perform Spec Exam to evaluate cervical OS and potential passage of products of conception -Will evaluate patient clinically for potential ascending infection -Patient is non-toxic appearing on initial intake -CBC: Pending -CMP: Pending 2. Vaginal Bleeding -See #1 -Patient's VSS -Will perform GC/Chlamydia swab and VP3 at this time 3. Olighydramnios -SHARAD: 1.7, per chart review 3. SIUP -See #1 PCP: TY Carson Dispo: Patient appears hemodymanically stable at this time with VS WNL. Plan for VP3, GC/Chlamydia swab, and CBC/CMP. Plan fo DC home with appropriate precautions to monitor for signs of ascending infection. Expected LOS < 4H. Discussion: Date/Time: 06/07/19 1350 This H&P was discussed with [] and [] who agree with the above documentation and plan. Addendum - Attending - Attending Attestation Date/Time: 06/07/191738 I personally evaluated the patient and discussed the management with Dr. Ramos I agree with the History, Examination, Assessment and Plan documented above with any addition or exceptions noted below - 28 yo female @21 6/7 weeks presented c/o vaginal bleeding since last night with passage of clots and lower abdominal cramping. history complicated by attempt in early for termination with misoprostol with multiple doses that was unsuccessful and then oligohydramnios that was noted on anatomy USG. Recent time course has been as follows: 05/02/2019 Seen at [place] [facility] [facility] @ 16 5/7 weeks for c/o yellow, watery discharge. No fluid seen or discharge seen at introitus per ER note. Diagnosed with UTI and given macrodantin. 05/23/2019 Sent to L&D from clinic after anatomy USG showed oligohydramnios. Patient reported clear discharge but no gushes of fluid; Also had scant vaginal bleeding for past 5 days with cramping. No fever. Pelvic showed thick yellow discharge and no pooling; Amnisure- negative; GC/CT negative; VP3 negative. USG showed ANNA=18 6/7 weeks; ENY=812y; SHARAD=1.6 cm; normal cervical length; trasnverse lie position. Admitted to hospital for monitoring, serial CBC. 05/24 had some increased cramping and bleeding, Repeat USG- SHARAD=1.8 cm, anterior placenta, breech presentation. 05/25 Bleeding and cramping improved; patient d/c' d home with precautions and instructions to monitor temperature and follow-up with PCP. 05/29/2019 Seen in L&D @ 20 4/7 weeks for vaginal bleeding. Patient reported spotting and light bleeding since discharge from hospital but then had some clots and heavier bleeding for last day. Pelvic- cervix closed on visual exam; no pooling or blood in vault. Amnisure negative; VP3 negative. Limited USG- breech presentation; cervical length 3.6 cm and SHARAD=0.8cm. Discharged home with precautions 06/03-06/05/2019 Seen at [facility] @ 21 1/7 weeks for minor bleeding. Monitored overnight. Given IV abx and sent home with keflex for 5 days. 06/05/2019- USG by MFM confirming severe oligohydramnios with SHARAD=1.7 cm; cervical length 24.4 mm; [id number] 06/07/2019 Seen in L&D @ 21 6/7 weeks for increased vaginal bleeding and cramping. Has not been monitoring temp as she had lost her thermometer. Denies any discharge apart from bleeding. Pelvic with small amount old blood in vault; cervix visually closed. H/H stable. WBC normal. D/c'd home with precautions and follow-up with PCP and MFM next week as scheduled.
[2019-06-07 14:41] LABS: #Eosinphils 0.2 thou/uL (0.0-0.7); #Lymphocytes 1.9 thou/uL (1.20-3.40); #Monocytes 0.8 thou/uL (0.11-0.59); #Neutrophils 10.6 thou/uL (1.40-6.50); %Basophils 0.3 % (0.0-1.0); %Eosinophils 1.8 % (0.0-10.0); %Lymphocytes 14.2 % (21.0-51.0); %Monocytes 5.6 % (0.0-10.0); %Neutrophils 78.2 % (42.0-75.0); Hemoglobin 11.3 g/dL (12.0-16.0); Mean Corpuscular HGB CONC 33.4 g/dL (32.0-36.0); Mean Corpuscular Hemoglobin 29.7 pg (27.0-31.0); Mean Corpuscular Volume 88.8 fL (78.0-98.0); Mean Platelet Volume 8.6 fL (7.4-10.4); Platelet Count 270 thou/uL (130-400); RBC Distribution Width 12.4 % (11.5-14.5); Red Blood Cell (RBC) Count 3.82 mill/uL (4.20-5.40); White Blood Cell (WBC) Count 13.6 thou/uL (4.8-10.8)
[2019-06-07 15:04] LABS: ALT (SGPT) 91 U/L (8-55); AST (SGOT) 55 U/L (5-34); Albumin 3.5 g/dL (3.5-5.0); Alkaline Phosphatase 62 U/L (40-110); Anion Gap 14 mmol/L (10-20); BUN (Urea Nitrogen) 4 mg/dL (7.0-18.7); Bilirubin, Total 0.6 mg/dL (0.2-1.2); Calc. Creatinine Clearance 173 mL/min (70-130); Calcium 9.1 mg/dL (7.8-10.44); Carbon Dioxide 19 mmol/L (22-29); Chloride 108 mmol/L (98-107); Estimated GFR-MDRD Greater than 90; Globulin 3.1 g/dL (2.4-3.5); Glucose 79 mg/dL (70-105); Potassium 3.6 mmol/L (3.5-5.1); Protein, Total 6.6 g/dL (6.0-8.3); Sodium 137 mmol/L (136-145)
[2019-06-07] MEDS ORDERED: Lactated Ringer's 1,000 ML IV SCH (17:15)
[2019-06-10 00:42] LABS: GC by PCR Not Detected (NotDetected)
== END 2019-06-07 17:15 | disposition home or self-care (01) ==
LOC: L&D/OP 11:41 → L&D-LIB 14:00 → L&D/OP 17:15
PROVIDERS: ATTEND Family Medicine
DX: O46.92 Antepartum hemorrhage, unspecified, second trimester (principal); O41.02X0 Oligohydramnios, second trimester, not applicable or unspecified; O99.89 Other specified diseases and conditions complicating pregnancy, childbirth and the puerperium; R10.30 Lower abdominal pain, unspecified; Z3A.21 21 weeks gestation of pregnancy; Z91.5 Personal history of self-harm; Z79.2 Long term (current) use of antibiotics; Z88.0 Allergy status to penicillin
CPT/HCPCS: 36415; 80053; 85025; 87480; 87510; 87591; 87660

== ENCOUNTER 2019-09-09 10:04 | Emergency (ER) | payer OTHER ==
[2019-09-10 15:25] LABS: SARS-CoV-2 MS2 Positive; SARS-CoV-2 N Gene Negative; SARS-CoV-2 S Gene Negative; SARS-CoV-2 orf1ab Negative
== END 2019-09-09 10:52 | disposition home or self-care (01) ==
LOC: ERS 10:04
DX: R51 Headache (principal); R09.89 Other specified symptoms and signs involving the circulatory and respiratory systems; R21 Rash and other nonspecific skin eruption; R19.7 Diarrhea, unspecified; Z20.828 Contact with and (suspected) exposure to other viral communicable diseases; F41.9 Anxiety disorder, unspecified
CPT/HCPCS: 87635; 99283; U0003

== ENCOUNTER 2020-05-27 19:03 | Emergency (ER) | payer OTHER ==
[2020-05-27 19:30] LABS: Pregnancy Test - Urine (BHCG) Negative (Negative); Specific Gravity 1.013 (1.002-1.036)
[2020-05-27 19:31] LABS: Bacteria/HPF None Seen HPF (None Seen); Bilirubin Negative (Negative); Blood, Urine Negative (Negative); Clarity Clear (Clear); Glucose, Urine (Dipstick) Normal (Negative); Ketone, Urine Negative (Negative); Leukocyte 25 Leu/uL (Negative); Nitrite Negative (Negative); Pregu Control Background? CLEAR/WHITE (CLR/WHITE); Pregu Control Bar Appear? YES (CONTROL BAR); Protein, Urine (Dipstick) Negative (Neg-Trace); RBC/HPF 0-3 HPF (0-3); Specific Gravity, Urine 1.013 (1.002-1.036); Urobilinogen Normal mg/dL (Less than 2); WBC/HPF 0-3 HPF (0-3)
[2020-05-27 19:41] LABS: #Basophils 0.1 thou/uL (0.0-0.2); #Eosinphils 0.1 thou/uL (0.0-0.7); #Lymphocytes 1.5 thou/uL (1.20-3.40); #Monocytes 0.7 thou/uL (0.11-0.59); %Basophils 0.7 % (0.0-1.0); %Eosinophils 1.3 % (0.0-10.0); %Lymphocytes 18.2 % (21.0-51.0); %Monocytes 8.2 % (0.0-10.0); %Neutrophils 71.5 % (42.0-75.0); Hemoglobin 12.6 g/dL (12.0-16.0); Mean Corpuscular HGB CONC 31.5 g/dL (32.0-36.0); Mean Corpuscular Hemoglobin 26.7 pg (27.0-31.0); Mean Corpuscular Volume 84.7 fL (78.0-98.0); Mean Platelet Volume 7.7 fL (7.4-10.4); Platelet Count 328 thou/uL (130-400); RBC Distribution Width 13.8 % (11.5-14.5); White Blood Cell (WBC) Count 8.4 thou/uL (4.8-10.8)
[2020-05-27 20:04] LABS: ALT (SGPT) 13 U/L (8-55); AST (SGOT) 15 U/L (5-34); Albumin 4.3 g/dL (3.5-5.0); Alkaline Phosphatase 68 U/L (40-110); Anion Gap 11 mmol/L (10-20); BUN (Urea Nitrogen) 7 mg/dL (7.0-18.7); Bilirubin, Total 0.9 mg/dL (0.2-1.2); Calc. Creatinine Clearance 0 mL/min (70-130); Calcium 9.1 mg/dL (7.8-10.44); Carbon Dioxide 26 mmol/L (22-29); Chloride 106 mmol/L (98-107); Globulin 3.4 g/dL (2.4-3.5); Glucose 109 mg/dL (70-105); Lipase 29 U/L (8-78); Potassium 4.1 mmol/L (3.5-5.1); Protein, Total 7.7 g/dL (6.0-8.3); Sodium 139 mmol/L (136-145)
[2020-05-27] MEDS ORDERED: Ondansetron PF 4 MG/2 ML Vial ONE (22:18)
== END 2020-05-27 21:47 | disposition home or self-care (01) ==
LOC: ERS 19:03
DX: R10.12 Left upper quadrant pain (principal); R11.2 Nausea with vomiting, unspecified
CPT/HCPCS: 36415; 80053; 81003; 81015; 81025; 83690; 85025; 85379; 96374; J2405

== ENCOUNTER 2021-09-26 19:37 | Emergency (ER) | payer OTHER ==
[2021-09-26] MEDS ORDERED: methylPREDNISolone Sod Succ/PF 125 MG/2 ML VIAL ONE (20:03)
[2021-09-26] MEDS ORDERED: hydrOXYzine 25 MG TAB ONE (20:05)
[2021-09-26] MEDS ORDERED: Famotidine 20 MG TAB ONE (20:05)
[2021-09-26] MEDS ORDERED: EPINEPHrine 1 MG/ML VIAL ONE (20:20)
== END 2021-09-26 22:45 | disposition home or self-care (01) ==
LOC: ERS 19:37
DX: L50.9 Urticaria, unspecified (principal); T78.1XXA Other adverse food reactions, not elsewhere classified, initial encounter
CPT/HCPCS: 93005; 96372; 96374; J0171; J2930

== ENCOUNTER 2023-06-27 10:24 | Emergency (ER) | payer OTHER, SELFPAY ==
[2023-06-27 11:18] LABS: Bacteria/HPF None Seen HPF (None Seen); Bilirubin Negative (Negative); Blood, Urine Negative (Negative); CAUTI Indications for Culture Pelvic or flank pain; Clarity Clear (Clear); Glucose, Urine (Dipstick) Normal (Negative); Ketone, Urine Negative (Negative); Leukocyte Negative Leu/uL (Negative); Nitrite Negative (Negative); Protein, Urine (Dipstick) Negative (Neg-Trace); RBC/HPF 0-3 HPF (0-3); Squamous Epithelial 0-3 HPF (0-3); Urobilinogen Normal mg/dL (Less than 2); WBC/HPF 0-3 HPF (0-3)
[2023-06-27 11:21] LABS: Urine Culture Reflex No No
[2023-06-27 11:43] LABS: Pregnancy Test - Urine (BHCG) Negative (Negative); Pregu Control Background? CLEAR/WHITE (CLR/WHITE); Pregu Control Bar Appear? YES (CONTROL BAR)
== END 2023-06-27 11:57 | disposition home or self-care (01) ==
LOC: ERS 10:24
DX: R42 Dizziness and giddiness (principal); R29.700 NIHSS score 0
CPT/HCPCS: 36416; 81001; 81025; 93005

== ENCOUNTER 2024-02-26 18:06 | Emergency (ER) | payer MEDICAID, SELFPAY ==
[2024-02-26] MEDS ORDERED: Ondansetron PF 4 MG/2 ML Vial ONE (21:07)
[2024-02-26 21:29] LABS: #Basophils 0.08 10x3/uL (0.0-0.2); %Basophils 0.7 % (0.0-1.0); %Eosinophils 2.6 % (0.0-10.0); %Lymphocytes 31.3 % (21.0-51.0); %Monocytes 6.3 % (0.0-10.0); %Neutrophils 58.6 % (42.0-75.0); Hematocrit 36.9 % (36.0-47.0); Hemoglobin 12.3 g/dL (12.0-16.0); Mean Corpuscular HGB CONC 33.3 g/dL (32.0-36.0); Mean Corpuscular Volume 83.9 fL (78.0-98.0); Mean Platelet Volume 10.4 fL (7.4-10.4); Platelet Count 343 10x3/uL (130-400); RBC Distribution Width 14.1 % (11.5-14.5)
[2024-02-26 21:42] LABS: BHCG - Serum Negative (NEGATIVE); Pregs Control Background? CLEAR/WHITE (CLR/WHITE); Pregs Control Bar Appear? YES (CONTROL BAR)
[2024-02-26 21:46] LABS: ALT (SGPT) 11 U/L (8-55); AST (SGOT) 14 U/L (5-34); Alkaline Phosphatase 54 U/L (40-110); Anion Gap 14 mmol/L (10-20); BUN (Urea Nitrogen) 10 mg/dL (7.0-18.7); Bilirubin, Total 0.4 mg/dL (0.2-1.2); Calc. Creatinine Clearance 0 mL/min (70-130); Calcium 9.1 mg/dL (7.8-10.44); Carbon Dioxide 23 mmol/L (22-29); Chloride 108 mmol/L (98-107); Estimated GFR 111; Globulin 3.5 g/dL (2.4-3.5); Glucose 94 mg/dL (70-105); Potassium 3.6 mmol/L (3.5-5.1); Protein, Total 7.5 g/dL (6.0-8.3); Sodium 141 mmol/L (136-145)
== END 2024-02-26 22:58 | disposition home or self-care (01) ==
LOC: ERS 18:06
DX: F43.0 Acute stress reaction (principal)
CPT/HCPCS: 36416; 71045; 80053; 84703; 85025; 93005; 96374; J2405